=== PATIENT | female | born 1995 | race African-American/Black ===

== ENCOUNTER 2017-09-19 22:10 | Emergency (ER) | payer MEDICAID ==
[~2017-09-19] VITALS: Ht 165.1 cm; Wt 94.8 kg
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
[2017-09-19] MEDS ORDERED: KEFLEX500 MG ORAL (23:47)
[2017-09-19 23:59] VITALS: BP 126/86
== END 2017-09-20 03:58 | disposition home or self-care (01) ==
LOC: EDSEX 22:10 → EMR 22:35
DX: S01.511A Laceration without foreign body of lip, initial encounter (principal); S80.211A Abrasion, right knee, initial encounter; W51.XXXA Accidental striking against or bumped into by another person, initial encounter; Y93.72 Activity, wrestling
CPT/HCPCS: 13152; 99284; Z7502